=== PATIENT | male | born 1950 | race Caucasian/White ===

== ENCOUNTER → 2017-01-13 | Outpatient (CLI) | payer MEDICARE, BC ==
[~2017-01-13] MED LIST: ASPI-558 PO; BENA40TA35 PO; CALCIUM PO; CARV12.52 PO; CITA20TA9 PO; CLOP75TA33 PO; FURO80TA63 PO; GABA-215 PO; INSU100C11 SQ; INSU100C13 SQ; LISI10TA7 PO; MIRT15TA6 PO; NTG; PRAV80TA PO; RANI150C11 PO; TAMS0.4C47 PO; VITAMIN D PO
--- NOTE | 2017-01-13 15:22 | DI ---
Indication: ITS.REASON: I70.211; I70.212 PROCEDURE: US ARTERIAL EXTREMITY LOWER BI: Technique: Grayscale color and duplex Doppler imaging was performed of the arterial tree of both legs. Findings: RIGHT LEG (cm/sec) Common Femoral 148 Superficial Femoral Proximal 114 Mid 130 Distal 139 Popliteal 96 JOON-prox 109 DEOILING MACHINE OPERATOR-prox 41 JOON-dist DEOILING MACHINE OPERATOR-dist 77 LEFT LEG (cm/sec) Common Femoral 129 Superficial Femoral Proximal 111 Mid 111 Distal 112 Popliteal 94 JOON-prox 77 DEOILING MACHINE OPERATOR-prox 112 JOON-dist DEOILING MACHINE OPERATOR-dist 75 Normal multiphasic waveforms seen throughout both lower extremities without velocity elevation, except for dampened waveforms in the dorsalis pedis arteries bilaterally. No occlusion. Subcutaneous edema in the left calf. Minimal atherosclerotic plaque. 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 .
== END ==
LOC: IMA 13:06
PROVIDERS: ATTEND Internal Medicine Nephrology
DX: I70.213 Atherosclerosis of native arteries of extremities with intermittent claudication, bilateral legs (principal)